=== PATIENT | male | born 1960 | race Caucasian/White ===

== ENCOUNTER → 2017-07-25 | Outpatient (CLI) | payer BC ==
--- NOTE | 2017-07-25 14:11 | US ---
EXAMINATION TYPE: US abdomen complete DATE OF EXAM: 07/25/2017 COMPARISON: NONE CLINICAL HISTORY: R10.2 Left Lower Quad Pain. EXAM MEASUREMENTS: Liver Length: 15.2 cm Gallbladder Wall: 0.2 cm CBD: 0.5 cm Spleen: 12.4 cm Right Kidney: 11.0 x 3.9 x 5.5 cm Left Kidney: 11.2 x 5.7 x 5.4 cm Pancreas: Obscured by bowel gas Liver: granulomatous process is suspected Gallbladder: No shadowing mobile stones seen , polyp Evidence for sonographic Ortiz's sign: no CBD: wnl Spleen: wnl Right Kidney: No hydronephrosis or masses seen Left Kidney: No hydronephrosis or masses seen Upper IVC: wnl Abd Aorta: wnl The liver is homogenous. Scattered calcific punctate foci noted. The intrahepatic portion of the IVC and proximal abdominal aorta are within normal limits. There is no evidence of cholelithiasis. Com mon bile duct is unremarkable. Pancreas is obscured by overlying bowel gas. The spleen is unremarkab le. Kidneys are symmetric and free of hydronephrosis. No renal lesions are seen. IMPRESSION: No significant finding is seen to account for patient's symptoms.
== END | disposition home or self-care (01) ==
LOC: RADUSWWP 13:01
PROVIDERS: ATTEND Family Medicine
DX: R10.32 Left lower quadrant pain (principal)
CPT/HCPCS: 76700

== ENCOUNTER → 2024-05-06 | Outpatient (CLI) | payer BC, OTHER ==
--- NOTE | 2024-05-06 13:15 | CA ---
Stress Echo Report Ash Croft Age: 63 Gender: M : 1960 Exam Date: 05/06/2024 10:13 Exam Location: [facility] Ht (in): 72 Wt (lb): 172 Ordering Physician: Jayla Alexander DO Referring Physician: ANOOP,, Automotive Project Engineer: Jayden Dc Technologist Procedure CPT: Indication: R94.31 ABNORMAL EKG ICD-9 Codes: Rhythm: Patient History: Cardiac Medications: LOSARTAN, WARFARIN, ASPIRIN Medications in past 24 hours: Contrast: N/A Stress Results Protocol: Dieter Total dose(mL): NA Exercise Duration (min:sec): 10:[address] Depression (mm): Angina Score: Soriano Score: METS: 11.5 Resting HR: 97 Resting BP: 122 / 78 Peak HR: 150 Peak BP: 182 / 71 Max Predicted HR: 159 94 % Max Predicted HR Target HR: 135 Double Product: [id number] Stress Summary: BP Response: Reason for Termination: MAX EXERTION/TARGET HR Cardiac Symptoms: NO SYMPTOMS ECG Analysis Resting ECG: Stress ECG: Arrhythmia: Echo Analysis Resting Echo: Peak Echo Analysis: MEASUREMENTS (Male/Female) Normal Values CONCLUSIONS Excellent exercise tolerance Normal electrocardiogram and echocardiogram in response to exercise Dr. Geronimo Alanis MD (Electronically Signed) Final Date: 06 May 2024 13:14
== END | disposition home or self-care (01) ==
LOC: RADNMMAIN 09:48
PROVIDERS: ATTEND Family Medicine
DX: R94.31 Abnormal electrocardiogram [ECG] [EKG] (principal)
CPT/HCPCS: 93351

== ENCOUNTER 2024-06-01 05:42 | Day surgery (SDC) | payer BC, OTHER ==
[2024-06-01] MEDS ORDERED: fentaNYL (PF) 50 MCG/ML 2 ML AMP IVP PRN (05:44)
[2024-06-01] MEDS ORDERED: MIDAZOLAM 2 MG/2 ML VIAL IV PRN (05:44)
[2024-06-01] MEDS ORDERED: LIDOCAINE 1% (10MG/ML) FOR IV START INTRADERMA PRN (05:44)
[2024-06-01] MEDS ORDERED: HYDROmorphone 0.5 MG/0.5 ML SYRINGE IVP PRN (05:44)
[2024-06-01] MEDS: ONDANSETRON 4 MG/2 ML VIAL IVP ONE (06:58)
[2024-06-01] MEDS: DEXAMETHASONE SOD PHOSPHATE 4 MG/ML 1 ML VIAL IV ONE (06:58)
[2024-06-01] MEDS: LACTATED RINGERS 1,000 ML IV SCH (06:59)
[2024-06-01] MEDS: IV FLUID CONTINUATION 1,000 ML IV ONE (07:00)
[2024-06-01 07:02] LABS: Anisocytosis Moderate; HCT 48.5 % (39.0-53.0); Hypochromasia Marked; MCH 17.6 pg (25.0-35.0); MCHC 26.7 g/dL (31.0-37.0); MCV 65.8 fL (80.0-100.0); Microcytosis Marked; Platelet Count 588 k/uL (150-450); Poikilocytosis Slight; RDW 20.4 % (11.5-15.5); WBC 13.6 k/uL (3.8-10.6)
[2024-06-01] MEDS: MIDAZOLAM 2 MG/2 ML VIAL IVP ONE (07:11)
[2024-06-01 07:14] LABS: INR 1.2 (<1.2)
[2024-06-01 07:15] LABS: RBC 7.37 m/uL (4.30-5.90)
[2024-06-01] MEDS: LIDOCAINE 1%-EPI 1:100,000 20 ML VIAL SQ ONE ×2 (07:23→07:50)
--- NOTE | 2024-06-01 07:23 | P.ANPRN ---
Procedure Note - Anesthesia - Nerve Block Performed Bilateral Erector Spinae Single Time Out Performed: Yes Date of Procedure: 06/01/24 Procedure Start Time: 07:10 Procedure Stop Time: 07:15 Location of Patient: PreOp Indication: Acute Post-Operative Pain, Analgesia, Requested by Surgeon Sedation Type: Sedate with meaningful contact maintained Preparation: Sterile Prep Position: Prone Catheter: None Needle Types: Pajunk Needle Gauge: 21 Ultrasound used to visualize needle placement: Yes Ultrasound used to observe medication spread: Yes Injectate: 0.5% Ropivacaine (see comment for volume) (Ropiv 20ml+decadron 4mg----Each side) Blood Aspirated: No Pain Paresthesia on Injection Noted: No Resistance on Injection: Normal Image Stored and Saved: Yes Events: Uneventful and Well Tolerated
[2024-06-01] MEDS ORDERED: fentaNYL (PF) 50 MCG/ML 2 ML AMP ONE (07:30)
[2024-06-01] MEDS ORDERED: LIDOCAINE 1% INJ 10MG/ML (20 ML MDV) ONE (07:30)
[2024-06-01] MEDS ORDERED: PROPOFOL 10 MG/ML 20 ML VIAL IV ONE (07:30)
[2024-06-01] MEDS ORDERED: KETAMINE HCL IN 0.9 % NACL 50 MG/5 ML SYRINGE ONE (07:30)
[2024-06-01] MEDS ORDERED: DEXAMETHASONE SOD PHOSPHATE 4 MG/ML 1 ML VIAL ONE (07:30)
[2024-06-01] MEDS ORDERED: KETOROLAC 15 MG/ML 1 ML VIAL ONE (07:30)
[2024-06-01] MEDS ORDERED: ROPIVACAINE 5 MG/ML 30 ML VIAL ONE (07:30)
[2024-06-01] MEDS ORDERED: SUCCINYLCHOLINE CHLORIDE 200 MG/10 ML VIAL IV ONE (07:30)
[2024-06-01] MEDS ORDERED: ROCURONIUM 10 MG/ML (5 ML VIAL) IV ONE (07:30)
[2024-06-01] MEDS ORDERED: SUGAMMADEX SODIUM 200 MG/2 ML SDV IV ONE (07:30)
[2024-06-01] MEDS: LACTATED RINGERS 1,000 ML IV ONE (07:59)
--- NOTE | 2024-06-01 08:17 | P.GSHP ---
History of Present Illness H&P Date: 06/01/24 Chief Complaint: Left inguinal hernia Is a 63-year-old male who presents today for laparoscopic pair of left inguinal hernia. Patient developed a left inguinal mass which has grown over the last several months. 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 mother woke up during gallbladder surgery Smoking Status: Former smoker - Past Family History Brother(s) Family Medical History: Cancer, Deep Vein Thrombosis (DVT), Pulmonary Embolus Additional Family Medical History / Comment(s): larynx Father Family Medical History: Congestive Heart Failure (CHF), Deep Vein Thrombosis (DVT) Medications and Allergies Home Medications Medication Instructions Recorded Confirmed Type Ascorbic Acid [Vitamin C] 500 mg PO DAILY 04/15/24 06/01/24 History Aspirin 81 mg PO DAILY 04/15/24 06/01/24 History Cetirizine HCl [Zyrtec] 10 mg PO DAILY PRN 04/15/24 06/01/24 History Losartan Potassium 50 mg PO 1730 04/15/24 06/01/24 History Lovenox (Unk Dose) 1 dose SQ BID 04/15/24 06/01/24 History Mv-Min/Folic/K1/Lycopen/Lutein 1 each PO DAILY 04/15/24 06/01/24 History [Centrum Silver Men Tablet] [place]-3/Dha/Epa/Fish Oil [Fish Oil 1 each PO DAILY 04/15/24 06/01/24 History 1,000 mg Softgel] Warfarin [Coumadin] 5 mg PO SUMOTUTHSA 04/15/24 06/01/24 History Warfarin [Coumadin] 7.5 mg PO WEFR 04/15/24 06/01/24 History Allergies Allergy/AdvReac Type Severity Reaction Status Date / Time Sesame Seed AdvReac Unknown Verified 06/01/24 06:12 Surgical - Exam Vital Signs Temp Pulse Resp BP Pulse Ox 97.7 F 79 18 128/77 98 06/01/24 06:15 06/01/24 06:15 06/01/24 06:15 06/01/24 06:15 06/01/24 06:15 - General well developed, well nourished, no distress - Eyes PERRL - ENT normal pinna - Neck no masses - Respiratory normal expansion - Cardiovascular Rhythm: regular - Abdomen Abdomen: soft, non tender Hernia: inguinal (Left inguinal hernia reducible) Results - Labs 06/01/24 06:40 Abnormal Lab Results - Last 24 Hours (Table) 06/01/24 06/01/24 Range/Units 06:40 06:40 WBC 13.6 H (3.8-10.6) k/uL RBC 7.37 H (4.30-5.90) m/uL MCV 65.8 L (80.0-100.0) fL MCH 17.6 L (25.0-35.0) pg MCHC 26.7 L (31.0-37.0) g/dL RDW 20.4 H (11.5-15.5) % Plt Count 588 H (150-450) k/uL PT 13.0 H (10.0-12.5) sec INR 1.2 H (<1.2) Assessment and Plan Assessment: Left inguinal hernia. Will perform laparoscopic robotic assisted repair.
--- NOTE | 2024-06-01 08:19 | P.OP ---
Date of Procedure: 06/01/24 Preoperative Diagnosis: Left inguinal hernia Postoperative Diagnosis: Left inguinal hernia Procedure(s) Performed: Laparoscopic robotic cyst repair of left inguinal hernia Transversus abdominis plane block Excision of left cord lipoma Anesthesia: TINY Surgeon: Austin Augustine Estimated Blood Loss (ml): 5 Pathology: other (Cord lipoma) Condition: stable Disposition: PACU Description of Procedure: The patient's placed on the operating table in the supine position. The patient received general anesthesia. The patient's abdomen was prepped and draped in usual sterile fashion. The skin was anesthetized 1% local Xylocaine at the incision sites. Using an 11 blade a skin incision was made at the umbilicus. The fascia was grasped with a Dwain and then the peritoneal cavity was entered with the Veress needle. Position of the Veress needle was confirmed with a positive drop test. After adequate insufflation a 5 mm trocar was placed into the peritoneal cavity. The Laparoscope was placed the peritoneal cavity. And a robotic 8 mm trocar was placed in the right lateral position and then another 8 mm robotic trochars placed in the left lateral position. The original 5 mm trocar was exchanged for a 12 mm trocar. The patient was placed in reverse Trendelenburg and then the patient was docked to the robot. A four-quadrant transversus abdominis plane block was performed 1% local Xylocaine. Next the peritoneum over top of the hernia was incised and then using blunt and sharp dissection and electrocautery the hernia sac was dissected free from the floor of the inguinal canal. The cord lipoma was dissected free sent pathology. The hernia sac was completely reduced into the peritoneal cavity. And then using the Pro mobile home set up person mesh the hernia was repaired. The peritoneum was then sutured with 20V lock suture. The patient was then undocked the robot. The needle was withdrawn from the peritoneal cavity. The umbilical trocar site was closed with 0 Ethibond suture. The skin was closed interrupted 3-0 Monocryl suture. Dermabond dressing was applied. Patient was sent to recovery in stable condition.
[2024-06-01 08:33] VITALS: TEMP 97.2
[2024-06-01 10:03] VITALS: RESP 16
[2024-06-01 10:51] VITALS: BP 131/76; PULSE 82
== END 2024-06-01 10:57 | disposition home or self-care (01) ==
LOC: OR 05:42
PROVIDERS: ATTEND Surgery
DX: I10 Essential (primary) hypertension (principal); K40.90 Unilateral inguinal hernia, without obstruction or gangrene, not specified as recurrent; Z86.718 Personal history of other venous thrombosis and embolism; Z86.16 Personal history of COVID-19; Z98.890 Other specified postprocedural states; Z87.891 Personal history of nicotine dependence; Z80.8 Family history of malignant neoplasm of other organs or systems; Z82.49 Family history of ischemic heart disease and other diseases of the circulatory system; Z79.82 Long term (current) use of aspirin; Z79.52 Long term (current) use of systemic steroids; Z79.899 Other long term (current) drug therapy
CPT/HCPCS: 49650; S2900; 64999; 85027; 85610; 88304